=== PATIENT | female | born 1980 | race Caucasian/White ===

== ENCOUNTER → 2016-05-21 | Outpatient (CLI) | payer BC ==
--- NOTE | 2016-05-21 15:37 | DI ---
RIGHT KNEE, 05/21/2016 3:06 PM: Clinical History: Right knee pain. Status post medial compartment joint replacement. Previous Exam: 04/09/2016. 3 views are submitted. The AP projection is a weightbearing view. The patient is status post medial c ompartment replacement. The prosthetic device articulates normally. There is no evidence of loosening of the prosthesis. A small joint effusion is present. Reading: Status post replacement of the medial compartment without evidence of loosening of the device. A smal l joint effusion is present.
== END ==
LOC: ORTHO 15:20
PROVIDERS: ATTEND Orthopaedic Surgery
DX: M25.561 Pain in right knee (principal); M25.461 Effusion, right knee; Z96.651 Presence of right artificial knee joint
CPT/HCPCS: 73562

== ENCOUNTER → 2016-08-08 | Outpatient (CLI) | payer BC ==
--- NOTE | 2016-08-08 09:17 | DI ---
PA /LATERAL CHEST X-RAY, 08/08/2016 8:50 AM : Clinical History: Cough. Previous Exam: None at this facility. There is no acute soft tissue or bony abnormality. Heart size is normal. Lungs are clear. Mediastinal structures are normal. There are no pulmonary nodules. Reading: Normal chest x-ray.
[2016-08-08 09:20] LABS: BASOPHILS # (AUTO) 0.01 10*3/UL; BASOPHILS % (AUTO) 0.2 % (0-1); EOSINOPHILS # (AUTO) 0 10*3/UL; EOSINOPHILS % (AUTO) 0 % (0-8); HEMATOCRIT 45.7 % (37.0-47.0); HEMOGLOBIN 15.4 g/dL (12.0-16.0); LYMPHOCYTES # (AUTO) 0.65 10*3/uL; MEAN CORPUSCULAR HEMOGLOBIN 29.5 PG (27-31); MEAN CORPUSCULAR HGB CONC 33.7 g/dL (33-37); MEAN CORPUSCULAR VOLUME 87.5 FL (81-99); MEAN PLATELET VOLUME 10.6 FL (7.4-12.2); MONOCYTES # (AUTO) 0.57 10*3/UL (0.3-0.8); MONOCYTES % (AUTO) 12.9 % (5-15); NEUTROPHILS # (AUTO) 3.19 10*3/UL; RED BLOOD COUNT 5.22 10^6/uL (4.20-5.40)
[2016-08-08 09:22] LABS: PLATELET MORPHOLOGY COMMENT NORMAL MORPHOLOGY (NORM); RBC MORPHOLOGY COMMENT NORMAL MORPHOLOGY (NORM); WBC MORPHOLOGY COMMENT NORMAL MORPHOLOGY (NORM)
[2016-08-08 09:30] LABS: BLOOD UREA NITROGEN 7 mg/dL (7-22); BUN/CREATININE RATIO 8.75 (6-20); CALCIUM 8.5 mg/dL (8.7-10.7); EST GLOMERULAR FILTRATION > 60 (>60 ml/min/1.73m(2)); SERUM ALBUMIN 4.2 g/dL (3.5-4.8)
== END ==
LOC: MOB LAB 08:54
PROVIDERS: ATTEND Physician Assistant Medical
DX: R05 Cough (principal); R50.9 Fever, unspecified; R06.02 Shortness of breath; J10.1 Influenza due to other identified influenza virus with other respiratory manifestations
CPT/HCPCS: 36415; 71020; 80053; 85025

== ENCOUNTER → 2016-09-12 | Outpatient (CLI) | payer BC | LOC: MOB LAB 09:46 | PROVIDERS: ATTEND Nurse Practitioner Family | DX: M25.561 Pain in right knee (principal) | CPT/HCPCS: 36415; 84550; 85652; 86038; 86431 ==